=== PATIENT | male | born 2000 | race African-American/Black ===

== ENCOUNTER 2020-05-04 16:53 | Emergency (ER) | payer OTHER ==
[~2020-05-04] VITALS: Ht 177.8 cm; Wt 90.5 kg
--- NOTE | 2020-05-04 17:20 | REPVR ---
PROCEDURE INFORMATION: Exam: XR Right Wrist Exam date and time: 05/04/2020 5:02 PM Age: 20 years old Clinical indication: Pain; Wrist; Right; Additional info: Wrist pain TECHNIQUE: Imaging protocol: XR Right wrist. Views: 3 or more views. COMPARISON: No relevant prior studies available. FINDINGS: Bones/joints: Normal. Soft tissues: Normal. IMPRESSION: No acute findings. Electronically signed by: Leonardo Gongora On 05/04/2020 17:20:16 PM
[2020-05-04 18:55] VITALS: BP 144/85
== END 2020-05-04 19:08 | disposition home or self-care (01) ==
LOC: M ED 16:53
DX: S63.501A Unspecified sprain of right wrist, initial encounter (principal); X50.0XXA Overexertion from strenuous movement or load, initial encounter; Y92.9 Unspecified place or not applicable; Y93.89 Activity, other specified

== ENCOUNTER 2020-12-24 00:51 | Emergency (ER) | payer OTHER ==
[~2020-12-24] VITALS: Ht 177.8 cm; Wt 93.4 kg
[2020-12-24 00:53] VITALS: BP 127/70
[2020-12-24] MEDS ORDERED: LIDOCAINE 1% MDV 20ML VIAL SC ONE (01:10)
[2020-12-24] MEDS ORDERED: AUGMENTIN 875 MG TAB PO ONE (01:15)
[2020-12-24] MEDS ORDERED: AUGM875T28 PO ×2 (01:37→01:41)
== END 2020-12-24 01:52 | disposition home or self-care (01) ==
LOC: M ED 00:51
DX: S01.551A Open bite of lip, initial encounter (principal); W54.0XXA Bitten by dog, initial encounter; Y92.009 Unspecified place in unspecified non-institutional (private) residence as the place of occurrence of the external cause; Y93.K9 Activity, other involving animal care; Y99.9 Unspecified external cause status

== ENCOUNTER 2020-12-30 10:09 | Emergency (ER) | payer OTHER ==
[~2020-12-30] VITALS: Ht 185.4 cm; Wt 93.7 kg
[~2020-12-30 10:09] MED LIST: AUGM875T28 PO
[2020-12-30] MEDS ORDERED: RABIES IMMUNE GLOBULIN 300 INTERNATIONAL UNITS/1ML VIAL (90375) IM ONE (12:00)
[2020-12-30] MEDS ORDERED: RABIES IMMUNE GLOBULIN 1500 INTERNATIONAL UNIT/5ML VIAL (90375) IM ONE ×2 (12:00)
[2020-12-30] MEDS ORDERED: RABIES VACCINE HUMAN 2.5 INTERNATIONAL UNITS/ML VIAL (90675) IM ONE (12:00)
[2020-12-30 12:34] VITALS: BP 116/77
== END 2020-12-30 12:44 | disposition home or self-care (01) ==
LOC: M ED 10:09
DX: Z20.3 Contact with and (suspected) exposure to rabies (principal); Z23 Encounter for immunization; W54.0XXD Bitten by dog, subsequent encounter

== ENCOUNTER 2021-03-30 20:26 | Emergency (ER) | payer OTHER ==
[~2021-03-30] VITALS: Ht 180.3 cm; Wt 97.0 kg
[2021-03-31] MEDS ORDERED: KETOROLAC 30 MG/ML 1ML VIAL IV ONE (01:00)
[2021-03-31] MEDS ORDERED: KETOROLAC TROMETHAMINE 10 MG TAB PO ONE (01:20)
[2021-03-31] MEDS ORDERED: IBUP80TA PO (01:27)
--- NOTE | 2021-03-31 02:20 | REPVR ---
PROCEDURE INFORMATION: Exam: XR Left Finger(s) Exam date and time: 03/31/2021 1:15 AM Age: 21 years old Clinical indication: Other: Unable to extend left middle/football injury TECHNIQUE: Imaging protocol: XR Left fingers. Views: Minimum 2 views. COMPARISON: No relevant prior studies available. FINDINGS: No acute osseous injury or articular malalignment of the left 3rd finger is seen. No periosteal reaction, bony erosive change or bone lesions seen. Joint spacing is maintained. There is slight flexion at the 3rd metacarpophalangeal joint, slight extension at the 3rd proximal interphalangeal joint and slight flexion at the 3rd distal interphalangeal joint. No bony cortical avulsion injury is seen. If soft tissue injury is suspected, consider further evaluation by MRI, as clinically appropriate. IMPRESSION: No radiographic evidence of an acute osseous injury. Other findings and recommendations discussed above. Electronically signed by: Deniz Bernstein On 03/31/2021 02:19:39 AM
[2021-03-31 02:45] VITALS: BP 143/93
== END 2021-03-31 02:49 | disposition home or self-care (01) ==
LOC: M ED 20:26
DX: S66.323A Laceration of extensor muscle, fascia and tendon of left middle finger at wrist and hand level, initial encounter (principal); S76.312A Strain of muscle, fascia and tendon of the posterior muscle group at thigh level, left thigh, initial encounter; M79.652 Pain in left thigh; Y92.9 Unspecified place or not applicable; Y93.9 Activity, unspecified; Y99.9 Unspecified external cause status

== ENCOUNTER 2021-12-28 15:00 | Emergency (ER) | payer OTHER ==
[~2021-12-28] VITALS: Ht 177.8 cm; Wt 101.6 kg
[~2021-12-28 15:00] MED LIST changes: +IBUP80TA PO
[2021-12-28 15:01] VITALS: BP 134/72
[2021-12-28 17:15] LABS: GC DNA AMPLIFICATION NEGATIVE (NEGATIVE)
== END 2021-12-28 19:19 | disposition left against medical advice (07) ==
LOC: M ED 15:00
DX: Z53.21 Procedure and treatment not carried out due to patient leaving prior to being seen by health care provider (principal)

== ENCOUNTER 2022-04-21 14:56 | Emergency (ER) | payer OTHER ==
[~2022-04-21] VITALS: Ht 177.8 cm; Wt 93.2 kg
[2022-04-21] MEDS ORDERED: MORPHINE 4 MG/ML 1ML VIAL/SYRINGE IV ONE (16:00)
[2022-04-21] MEDS ORDERED: TRAM50TA2 PO (16:53)
[2022-04-21 17:13] VITALS: BP 119/65
== END 2022-04-21 17:45 | disposition home or self-care (01) ==
LOC: M ED 14:56
DX: S80.911A Unspecified superficial injury of right knee, initial encounter (principal); Y92.9 Unspecified place or not applicable; Y93.62 Activity, american flag or touch football; Y99.9 Unspecified external cause status; Z79.899 Other long term (current) drug therapy
CPT/HCPCS: 73564; 99284; J2270

== ENCOUNTER → 2022-05-17 | Outpatient (CLI) | payer OTHER ==
[~2022-05-17] MED LIST changes: +TRAM50TA2 PO
== END ==
LOC: M PLAIMG 06:54
PROVIDERS: ATTEND Physician Assistant
DX: S83.251A Bucket-handle tear of lateral meniscus, current injury, right knee, initial encounter (principal); M25.461 Effusion, right knee